=== PATIENT | female | born 1990 | race Caucasian/White ===

== ENCOUNTER 2016-05-15 13:56 | Emergency (ER) | payer SELFPAY ==
--- NOTE | 2016-05-15 14:23 | EDPHY ---
H & P Stated Complaint: Suicidal, etoh "wants help" last drink today Source: Patient Exam Limitations: No limitations - Personal History LMP (Females 10-55): 8-14 Days Ago Current Tetanus/Diphtheria Vaccine: Unsure Current Tetanus Diphtheria and Acellular Pertussis (TDAP): Unsure - Medical/Surgical History Hx Asthma: No Hx Chronic Respiratory Disease: No Hx Diabetes: No Hx Cardiac Disease: No Hx Renal Disease: No Hx Cirrhosis: No Hx Alcoholism: No Hx HIV/AIDS: No Hx Splenectomy or Spleen Trauma: No Other PMH: no med hx. daily etoh abuse - Social History Smoking Status: Current every day smoker Time Seen by Provider: 05/15/16 14:22 HPI/ROS: CHIEF COMPLAINT: Suicidal ideation, depression, alcohol abuse HISTORY OF PRESENT ILLNESS: The patient has a history of reported bipolar mood disorder. She presents to the ED with suicidal thoughts, depression and and increasing alcohol abuse. The patient does report her last drink was earlier today. She does have a history of overdosing on Seroquel. She also has a remote history of cutting. She has been in [place] for approximately 2 months. She states the precipitant into her symptoms are feeling lonely. She apparently moved to [place] after breaking up with her boyfriend on the [facility]. She does have a small support network here in [place]. REVIEW OF SYSTEMS: A comprehensive 10 point review of systems is otherwise negative aside from elements mentioned in the history of present illness. (Pasha Santiago) - Physical Exam Exam: General Appearance: Alert, no distress Eyes: Pupils equal and round no pallor or injection ENT, Mouth: Mucous membranes moist Respiratory: There are no retractions, lungs are clear to auscultation Cardiovascular: Regular rate and rhythm Gastrointestinal: Abdomen is soft and nontender, no masses, bowel sounds normal Neurological: A&O, normal motor function, normal sensory exam, normal cranial nerves Skin: Warm and dry, no rashes Musculoskeletal: Neck is supple nontender Extremities: symmetrical, full range of motion Psychiatric: Tearful, endorses suicidal ideation, denies suicidal plan (Pasha Santiago) Constitutional: Initial Vital Signs Temperature (C) 36.5 C 05/15/16 14:07 Heart Rate 112 H 05/15/16 14:07 Respiratory Rate 18 05/15/16 14:07 Blood Pressure 120/97 H 05/15/16 14:07 O2 Sat (%) 98 05/15/16 14:07 O2 Delivery Mode Room Air Allergies/Adverse Reactions: escitalopram oxalate [From Lexapro] Allergy (Verified 05/15/16 14:05) Home Medications: Medication Instructions Recorded NK [No Known Home Meds] 05/15/16 Medical Decision Making ED Course/Re-evaluation: The patient presents to the emergency department with depression, suicidal ideation and no suicidal plan. The patient is here on a voluntary basis. The patient has been medically cleared for psychiatric evaluation. The patient's blood alcohol level is elevated at 0.324. The patient is here on a voluntary basis. She will be turned over to Dr. Thompson at shift change pending sobriety in psychiatric evaluation. (Pasha Santiago) [id number]: Spoke with Dr. Nassar who has seen and evaluated her. Recommends inpatient psychiatric placement they will attempt to do a bed search for her. I have added on a TSH. I did go and see and evaluate the patient she does seem anxious. I placed her on CIWA protocol. I have given her 1 mg IV Ativan. They will attempt bed placement for her. (Stuart Yañez) Differential Diagnosis: Differential diagnosis considered includes depression, psychosis, suicidal ideation, overdose, substance abuse, alcohol intoxication (Pasha Santiago) 0400: No acute events overnight. Patient sleeping. Patient signed over to Dr. Faulkner at 7am shift-change. Placed on CIWA. Patient pending placement. Bed Search. (Stuart Yañez) - Data Points Laboratory Results: Laboratory Results 05/15/16 15:00 05/15/16 15:00 05/16/16 05/15/16 02:00 14:35 TSH Pending Urine Opiates Screen NEGATIVE (NEGATIVE) Urine Barbiturates NEGATIVE (NEGATIVE) Ur Phencyclidine Scrn NEGATIVE (NEGATIVE) Ur Amphetamine Screen NEGATIVE (NEGATIVE) U Benzodiazepines Scrn NEGATIVE (NEGATIVE) Urine Cocaine Screen NEGATIVE (NEGATIVE) U Marijuana (THC) Screen NON-NEGATIVE H (NEGATIVE) Medications Given: Discontinued Medications Sodium Chloride (Ns) 1,000 mls @ 0 mls/hr IV ONCE ONE PRN Reason: Wide Open Stop: 05/16/16 02:42 Last Admin: 05/16/16 03:16 Dose: 1,000 mls Lorazepam (Ativan Injection) 1 mg IVP EDNOW ONE Stop: 05/16/16 02:41 Last Admin: 05/16/16 03:15 Dose: 1 mg Departure - Departure Clinical Impression: Depression, Alcohol intoxication Condition: Good Referrals: NONE *PRIMARY CARE P,. [Primary Care Provider] - As per Instructions
[2016-05-15 15:24] LABS: % IMMATURE GRANULYOCYTES 0.3 % (0.0-1.1); ABSOLUTE IMMATURE GRANULOCYTES 0.02 10^3/uL (0.00-0.10); ADD DIFF? NO; ADD MORPH? NO; ADD SCAN? NO; ATYPICAL LYMPHOCYTE FLAG 0 (0-99); FRAGMENT RBC FLAG 0 (0-99); HEMATOCRIT 43.9 % (38.0-47.0); HEMOGLOBIN 15.2 g/dL (12.6-16.3); LEFT SHIFT FLG 0 (0-99); LIPEMIA HEMOLYSIS FLAG 90 (0-99); MEAN CELL HEMOGLOBIN 31.2 pg (27.9-34.1); MEAN CELL HEMOGLOBIN CONCENTR. 34.6 g/dL (32.4-36.7); MEAN CELL VOLUME 90.1 fL (81.5-99.8); MEAN PLATELET VOLUME 9.2 fL (8.7-11.7); PLATELET CLUMPS FLAG 0 (0-99); PLATELET COUNT 367 10^3/uL (150-400); RED BLOOD CELL COUNT 4.87 10^6/uL (4.18-5.33); RED CELL DISTRIBUTION WIDTH 13.2 % (11.5-15.2)
[2016-05-15 15:31] LABS: ANION GAP 16 mEq/L (8-16); CALCIUM 9.4 mg/dL (8.5-10.4); CARBON DIOXIDE 23 mEq/l (22-31); CHLORIDE 106 mEq/L (97-110); CREATININE 0.8 mg/dL (0.6-1.0); GLOMERULAR FILTRATION RATE > 60; GLUCOSE 101 mg/dL (70-100); POTASSIUM 4.4 mEq/L (3.5-5.2); SODIUM 145 mEq/L (134-144)
[2016-05-15 15:38] LABS: ETHANOL SERUM 324 mg/dL (0-10)
[2016-05-15 23:03] VITALS: RESP 16; O2SAT 97
[2016-05-16] MEDS ORDERED: LORazepam 2 MG/ML INJ IVP ONE (02:40)
[2016-05-16] MEDS ORDERED: NS 1,000 ML IV ONE (02:41)
[2016-05-16] MEDS ORDERED: chlordiazePOXIDE 25 MG CAP PO ONE (08:24)
[2016-05-16 08:39] VITALS: BP 137/99; PULSE 86; TEMP 98.4
== END 2016-05-16 10:44 | disposition short-term general hospital (02) ==
DX: F32.9 Major depressive disorder, single episode, unspecified (principal); F10.129 Alcohol abuse with intoxication, unspecified; F17.200 Nicotine dependence, unspecified, uncomplicated
CPT/HCPCS: 80305; 96374; G0480; J2060